=== PATIENT | male | born 1955 | race Caucasian/White ===

== ENCOUNTER → 2017-04-19 | Outpatient (CLI) | payer OTHER ==
[2017-04-19 15:03] LABS: HEMATOCRIT 45.1 % (42-52); MEAN CORPUSCULAR HEMOGLOBIN 30.6 pg (25-34); MEAN CORPUSCULAR HGB CONC 33.3 g/dl (32-36); PLATELET COUNT 254 K/uL (130-400); WHITE BLOOD COUNT 5.79 K/uL (4.8-10.8)
[2017-04-19 15:18] LABS: C-REACTIVE PROTEIN < 0.29 mg/dl (0-0.29); RHEUMATOID FACTOR < 10.0 U/mL (0-15); URIC ACID 5.5 mg/dl (2.6-7.2)
[2017-04-19 18:38] LABS: LYME DISEASE AB IGG NEG (NEG)
[2017-04-19 18:41] LABS: LYME DISEASE AB IGM NEG (NEG)
[2017-04-24 10:49] LABS: HLA-B27** TC 528X NEGATIVE (NEGATIVE)
== END ==
LOC: C.LAB1850 11:27
PROVIDERS: ATTEND Physician Assistant
DX: M65.30 Trigger finger, unspecified finger (principal)

== ENCOUNTER → 2017-05-30 | Outpatient (CLI) | payer OTHER ==
--- NOTE | 2017-05-30 23:55 | Myocardial Perfusion Study ---
Myocardial Perfusion Study Rpt Myocardial Perfusion Study Rpt Date of Service 05/30/2017 Myocardial Perfusion Study Rpt ONE DAY NUCLEAR MEDICINE EXERCISE TECHNETIUM 99M MYOCARDIAL PERFUSION SCAN Indication: History asymptomatic severe coronary artery disease Baseline ECG: Normal sinus rhythm, no ST abnormalities. Questionable old septal infarct. Ventricular rate 65. Stress ECG: Exercise for 12 minutes 6 seconds, achieved 13.7 Mets, 80 percent MPHR. No significant exercise-induced ST abnormalities. Occasional PACs S stress and into recovery, no other significant arrhythmias. No exercise- induced chest. Technique: For the stress portion of the study 31.2 mCi of Technetium 99m Cardiolite IV was injected at 09:45 am on 05/30/2017. 30 minutes following the injection, imaging of the heart was performed in multiple projections. For the rest portion of the study, 10.3 mCi of Technetium 99m Cardiolite was injected IV at 07:30 am. One hour following the injection, imaging of the hear was performed in the same projections. Findings: Rotating raw images were reviewed in detail. Potential sources of attenuation included minimal gut uptake impacting the inferior imaging border of the heart. No significant extracardiac pathologic uptake. Short axis, vertical long axis and horizontal long axis images were reviewed in detail. No visual TID. Normal myocardial perfusion on both stress and rest. Normal LV size. EDV 70 ml. Calculated EF 64%. No regional wall motion abnormalities. SUMMARY: 1. Normal myocardial perfusion with no evidence of exercise-induced ischemia. 2. Normal LV size and function. LVEF 74% with no regional wall motion abnormalities. 3. Negative exercise stress EKG at 88% MPHR. 4. Above average functional capacity. Exercise 12 minutes and 6 seconds, achieved 13.7 Mets. No exercise-induced chest pain. Low risk Salas treadmill score.
== END | disposition home or self-care (01) ==
LOC: C.NUCL 07:06
PROVIDERS: ATTEND Internal Medicine Cardiovascular Disease
DX: I25.10 Atherosclerotic heart disease of native coronary artery without angina pectoris (principal)

== ENCOUNTER → 2017-08-17 | Outpatient (CLI) | payer OTHER ==
[2017-08-17 10:04] LABS: ALB/GLOB RATIO 1.2 (0.9-2); ALKALINE PHOSPHATASE 115 U/L (45-117); ALT/SGPT 36 U/L (12-78); AST/SGOT 18 U/L (15-37); BLOOD UREA NITROGEN 26 mg/dl (7-18); BUN/CREATININE RATIO 26.1 (10-20); CALCIUM 8.2 mg/dl (8.5-10.1); CARBON DIOXIDE 25 mmol/L (21-32); CHLORIDE 111 mmol/L (98-107); CHOLESTEROL 96 mg/dl (0-200); CHOLESTEROL/HDL RATIO 1.3; GLUCOSE 104 mg/dl (70-99); HDL CHOLESTEROL 72 mg/dl; LDL CHOLESTEROL CALCULATED 13 mg/dl; POTASSIUM 4.2 mmol/L (3.5-5.1); SODIUM 141 mmol/L (136-145); TRIGLYCERIDES 57 mg/dl (0-150); VERY LOW DENSITY LIPOPROT CALC 11 mg/dl
== END ==
LOC: C.LAB1850 07:42
PROVIDERS: ATTEND Internal Medicine Cardiovascular Disease
DX: E78.5 Hyperlipidemia, unspecified (principal); I25.10 Atherosclerotic heart disease of native coronary artery without angina pectoris; I10 Essential (primary) hypertension

== ENCOUNTER → 2018-01-24 | Outpatient (CLI) | payer OTHER ==
[2018-01-24 09:37] LABS: BASO % 0.4 %; BASO ABS # 0.02 K/uL (0-0.2); EOS % 3.1 %; EOS ABS # 0.17 K/uL (0-0.5); HEMATOCRIT 42.2 % (42-52); HEMOGLOBIN 14.2 g/dL (14.0-18.0); IG# 0.01 K/uL (0.00-0.02); LYMPH % 30.8 %; LYMPH ABS # 1.71 K/uL (1.2-3.4); MEAN CELL VOLUME 92.7 fL (80-100); MEAN CORPUSCULAR HEMOGLOBIN 31.2 pg (25-34); MEAN CORPUSCULAR HGB CONC 33.6 g/dl (32-36); MEAN PLATELET VOLUME 10.2 fL (7.4-10.4); MONO % 11.7 %; MONO ABS # 0.65 K/uL (0.11-0.59); NEUT % 53.8 %; PLATELET COUNT 217 K/uL (130-400); RED CELL DISTRIBUTION WIDTH CV 13.1 % (11.5-14.5); RED CELL DISTRIBUTION WIDTH SD 44.2 fL (36.4-46.3); WHITE BLOOD COUNT 5.56 K/uL (4.8-10.8)
== END | disposition home or self-care (01) ==
LOC: C.LAB1850 07:43
PROVIDERS: ATTEND Internal Medicine Cardiovascular Disease
DX: Z00.00 Encounter for general adult medical examination without abnormal findings (principal); R73.01 Impaired fasting glucose; I10 Essential (primary) hypertension; E78.5 Hyperlipidemia, unspecified; I25.10 Atherosclerotic heart disease of native coronary artery without angina pectoris